=== PATIENT | male | born 1970 | race Two or more races ===

== ENCOUNTER 2025-10-28 23:04 | Emergency (ER) | payer OTHER, SELFPAY ==
[2025-10-28] VITALS (8 sets, daily range): BP systolic 135–165; BP diastolic 92–105; PULSE 88–106; RESP 15–93; TEMP 36.5–36.6; O2SAT 94–97; BMI 30.9
--- NOTE | 2025-10-28 23:06 | PC.NURSE ---
DR. KATE FROM [facility] CALLED FOR CONSULT FOR POSSIBLE STROKE.
--- NOTE | 2025-10-28 23:06 | PD.EDNEURO ---
Neuro Symptoms Deficit-RME/HPI General Chief Complaint: General Adult/Misc Complain Stated Complaint: POSSIBLE STROKE Time Seen by Provider: 10/28/25 23:48 Arrival date/time: 10/28/25 23:04 Limitations: no limitations RME / HPI RME / HPI Narrative: Dr. Andujar's Main ED Evaluation: 55yo male with no significant past medical history [place]JINDER from home presents to the ED due to having neurological symptoms. Stroke alert was initiated ACID PAINTER. Patient was seen by me immediately upon arrival at 2302. Per EMS, patient was watching TV with his when he started having numbness to his right hand, difficulty speaking, and was becoming altered. LKWT 2230. Blood sugar with EMS was 118. Vitals with EMS were: >BP: 196/110 >99% on 6L/[facility] EMS denies tobacco or illicit drug use. Blood sugar here is 121. Full ROS is unobtainable due to the patient having difficulty speaking. Related Data Allergies Allergy/AdvReac Type Severity Reaction Status Date / Time No Known Allergies Allergy Verified 10/28/25 23:25 Review of Systems Review of Systems ROS Unobtainable: unobtainable due to medical condition ED Exam Narrative Physical exam: 1A: Level of Consciousness - Alert; keenly responsive?+ 0 1B: Ask Month and Age - Aphasic?+ 2 1C: Blink Eyes & Squeeze Hands - Performs Both Tasks?+ 0 2: Test Horizontal Extraocular Movements - Normal?+ 0 3: Test Visual Dan - No Visual Loss?+ 0 4: Test Facial Palsy (Use Grimace if Obtunded) - Minor paralysis (flat nasolabial fold, smile asymmetry)?+ 1 5A: Test Left Arm Motor Drift - No Drift for 10 Seconds?+ 0 5B: Test Right Arm Motor Drift - No Drift for 10 Seconds?+ 0 6A: Test Left Leg Motor Drift - No Drift for 5 Seconds?+ 0 6B: Test Right Leg Motor Drift - No Drift for 5 Seconds?+ 0 7: Test Limb Ataxia (FNF/Heel-Sun) - No Ataxia?+ 0 8: Test Sensation - Normal; No sensory loss?+ 0 9: Test Language/Aphasia - Mute/Global Aphasia: No Usable Speech/Auditory Comprehension?+ 3 10: Test Dysarthria - Mute/Anarthric?+ 2 11: Test Extinction/Inattention - No abnormality?+ 0 NIHSS Score:?8 General Limitations: Present no limitations General appearance: Present alert and in no apparent distress Head Head exam: Present atraumatic Eye Eye exam: Present normal appearance, PERRL and EOMI ENT ENT exam: Present normal exam, normal oropharynx and mucous membranes moist Neck Neck exam: Present normal inspection, full ROM and trachea midline Chest Chest inspection: Present normal inspection and symmetric chest wall rise Respiratory Respiratory exam: Absent accessory muscle use Cardiovascular Cardiovascular exam: Present regular rate, normal rhythm and normal heart sounds Abdominal Exam Abdominal exam: Present soft and other (large) Extremities Exam Extremities exam: Present full ROM; Absent pedal edema Neurological Exam Neurological exam: Present alert and other (+ dysarthria, repetitively states I can't ; no gaze to the left or right) Skin Skin exam: Present warm, dry, intact and normal color; Absent diaphoresis Course Course Course Narrative: Stroke alert was initiated ACID PAINTER. 2302: Patient was seen by me immediately upon arrival. Teleneurology is at bedside. 2306: Patient sent to CT. Teleneurology recommends TNKase. 2328: TNKase given. 2348: CT head and CTA head/neck vessels are still pending to be read by the radiologist. 0005: CTA head/neck vessels shows occlusion M1 segment left middle cerebral artery with very poor filling of left middle cerebral artery trifurcation vessels. Patient will require higher [id number]. Charge nurse notified. Quality Measures Suspected type of Stroke: Acute Ischemic Tenecteplase given: within 60 min of arrival stroke Orders Category Date Time Status Bedside Blood Glucose NOW Care 10/28/25 23:07 Completed Component Overhaul Operator NOW Care 10/28/25 23:07 Completed Continuous Pulse Oximetry NOW Care 10/28/25 23:07 Completed EKG (ED ONLY) *Do not use* NOW Care 10/28/25 23:07 Completed In and Out Catheter NEEDED Care 10/28/25 23:07 Completed Insert IV NOW Care 10/28/25 23:07 Completed NIH Stroke Scale Q4HX8,QSHIFT Care 10/28/25 23:46 Completed NIH Stroke Scale now Care 10/28/25 23:07 Completed NPO NOW Care 10/28/25 23:07 Completed Neuro Check Q15M Care 10/28/25 23:46 Completed Nurse Swallow Screen x1 Care 10/28/25 23:07 Completed Vital Signs Q15MIN Care 10/28/25 23:36 Completed Consult to Neurology / Tele-Neurology Routine Cons 10/28/25 23:[address] angio stroke protocol Stat Exams 10/28/25 23:[address] stroke protocol Stat Exams 10/28/25 23:07 Completed EKG (ED Only) Stat Exams 10/28/25 23:07 Draft XR chest 1V portable Stat Exams 10/28/25 23:07 Completed CBC Stat Lab 10/28/25 23:07 Completed Comprehensive Metabolic Panel Stat Lab 10/28/25 23:07 Completed Drug Screen,Urine Stat Lab 10/29/25 01:35 Completed HCG Titer if Positive Stat Lab 10/28/25 23:07 Completed Magnesium Stat Lab 10/28/25 23:07 Completed Partial Thromboplastin Time Stat Lab 10/28/25 23:07 Completed Prothrombin Time with INR Stat Lab 10/28/25 23:07 Completed Troponin I Stat Lab 10/28/25 23:07 Completed Urinalysis, C/S if Indicated Stat Lab 10/29/25 01:35 Completed Labetalol* IV [Trandate* IV] Med 10/28/25 23:31 Discontinued 10 mg IVP PRNMRX1 PRN Labetalol* IV [Trandate* IV] Med 10/28/25 23:31 Discontinued 10 mg IVP PRNMRX1 PRN Labetalol* IV [Trandate* IV] Med 10/28/25 23:06 Discontinued 10 mg IVP Q15M PRN Nicardipine/Ns 20Mg Ivpb [Cardene Ivpb] Med 10/28/25 23:31 Discontinued 20 mg in 200 ml IV 5 mg/hr Ondansetron Inj [Zofran Inj] Med 10/28/25 23:06 Discontinued 4 mg IVP Q4HR PRN Tenecteplase Inj [TNKase Inj] Med 10/28/25 23:31 Discontinued 23 mg IV X1 ONE Tenecteplase Inj [TNKase Inj] Med 10/28/25 23:24 Discontinued 50 mg .ROUTE .STK-MED ONE Oxygen Delivery NOW RT 10/28/25 23:07 Completed Vital Signs Vital signs: Vital Signs Temperature 97.9 F 10/28/25 23:10 Pulse Rate 98 10/28/25 23:10 Respiratory Rate 18 10/28/25 23:10 Blood Pressure 135/92 H 10/28/25 23:10 Pulse Oximetry (%) 94 L 10/28/25 23:10 Oxygen Delivery Method Room Air 10/28/25 23:10 Neuro Symptoms / Deficit MDM Narrative MDM Narrative:: Scribe Attestation: 10/28/25 - Keysha Khalil am scribing for and in the presence of Dr. Andujar. 55-year-old male presented to the emergency department by EMS after witnessed aphasia and possibly right arm weakness that happened exactly at 10:30 PM. Fingerstick is normal here in the emergency department. Blood pressure prior to arrival per EMS was 196/110. NIH score 8. Repeat blood pressure no contraindications to tPA. Blood pressure in the emergency department 135/92 and on repeat 146/97. Patient unable to state his birthdate, is aphasic, with visual field deficits. Seen by teleneurology on arrival patient immediately to CAT scan which shows no bleed. tPA was given. 11:[address] Nieto the teleneurologist with possible and M1 abnormality on CT scan. 11:[address] with contrast still not read by the radiologist. CT angio still pending. 0005: CTA head/neck vessels shows occlusion M1 segment left middle cerebral artery with very poor filling of left middle cerebral artery trifurcation vessels. Patient will require higher [id number]. Charge nurse notified. Status post tPA patient awake alert not complaining of headache. Vital signs are stable at this time. is at the bedside. Patient son is at the bedside. They have been updated and agree to the transfer. 0031: Discussed case with Dr. Kim, neuro from [facility]. Discussed patients ED course, exam findings, labs, and radiology results. Agrees to consult. 0111: Discussed case with Dr. Estevez from [facility]. Discussed patients ED course, exam findings, labs, and radiology results. Patient data External records reviewed:: [facility] previous records (Per chart review, patient has no previous ED visits or admissions to this facility.) and EMS form Clinical information provided by:: EMS Social determinants that could affect healthcare access:: none Patient has the following chronic illnesses:: none How is presenting disease/condition affected by chronic disease/condition?: no chronic disease Evaluation data The following diagnostics were reviewed and interpreted by me:: lab results, radiology exam(s) and EKG tracing(s) Lab and/or radiology exams considered but not ordered:: none Interpretation Summary: WBC normal, PT/INR/PTT normal, CMP normal. EKG done at 2324, sinus tachycardia, rate of 105, 1st degree AV block, TX interval: 205, QTc: 373, according to my interpretation. [facility] Report Signed Patient: MELA ROBERT T1 Visions. Record#: [id number] Birthdate: 08/23/1976 Age/Sex: 49 / M Location: [facility] Attending Dr: Ordering Physician: Luisa Young MD Date of Service: 10/28/25 Procedure(s): CT stroke protocol Accession Number(s): [id number] cc: Alfredito Lomeli MD; Luisa Yuong MD~ Examination: CT brain head without contrast. 2-D sagittal coronal reconstructions Date and time of exam: October 28, 2025, 11:25 p.m. INDICATIONS: Onset right-sided body weakness difficulty speaking today CTDI: vol (mGy): 53.4 DLP: (mGycm): 1094 Technique: Multiple CT axial sections of the brain have been obtained, 5 mm slice thickness. Contrast has not been administered. 2-D sagittal, coronal reconstructions have been obtained Low dose protocols were performed. One or more of the following dose reduction techniques were used; automated exposure control, adjustment of the mA and/or KV according to patient size, use of iterative reconstruction technique. Findings: No significant ventricular enlargement. Intra-axial or extra-axial hemorrhage density is not seen. No mass effect or midline shift Basal cisterns are not remarkable. Fourth ventricle is midline. Cranial vault intact. Impression: Negative for acute hemorrhage, mass effect or midline shift Dictated By: Alfredito Lomeli MD Signed By: <Electronically signed by Alfredito Lomeli MD in OV> 10/28/25 2350 [facility] Report Signed Patient: MELA ROBERT T1 Visions. Record#: [id number] Birthdate: 08/23/1976 Age/Sex: 49 / M Location: [facility] Attending Dr: Ordering Physician: Luisa Young MD Date of Service: 10/28/25 Procedure(s): CT angio stroke protocol Accession Number(s): [id number] cc: Alfredito Lomeli MD; Luisa Young MD~ Examination: CTA carotids with intravenous contrast CTA brain, head with intravenous contrast. 2-D sagittal, coronal reconstructions. 3-D reconstructions. Exam date and time: October 28, 2025, 1115 hours INDICATIONS: Right-sided body weakness difficulty speaking today CTDI: vol (mGy) 11.4 DLP: (mGycm) 474 Technique: Multiple CTA axial brain, head carotid images post intravenous contrast injection 75 cc, [id number]. 2-D sagittal, coronal reconstructions. 3-D reconstructions, 3-D post processing including vascular maximum intensity projection images. Low dose protocols were performed. One or more of the following dose reduction techniques were used; automated exposure control, adjustment of the mA and/or KV according to patient size, use of iterative reconstruction technique. Findings: No significant common carotid carotid bifurcation or internal carotid artery stenoses Dominant right vertebral artery in the neck no critical stenoses Intracranial vertebral arteries basilar artery posterior cerebral branches do fill Juxtasellar and supraclinoid portions internal carotid arteries do fill Occlusion M1 segment left middle cerebral artery with poor filling of left middle cerebral artery trifurcation vessels Anterior cerebral arteries do fill IMPRESSION: No significant neck arterial stenoses Occlusion M1 segment left middle cerebral artery with very poor filling of left middle cerebral artery trifurcation vessels Dictated By: Alfredito Lomeli MD Signed By: <Electronically signed by Alfredito Lomeli MD in OV> 10/28/25 6775 Medications / Prescriptions Medications or Prescriptions considered but not ordered:: none Medication administrations:: Medication Administration History Discontinued Medications Nicardipine/Sodium Chloride (Cardene Ivpb) 20 mg in 200 mls @ 50 mls/hr IV .Q4H PRN; Protocol PRN Reason: Per Nicardipine Stroke Protocol Stop: 11/27/25 23:30 Labetalol HCl (Labetalol Inj 5 Mg/Ml Vial 4 Ml) 10 mg IVP Q15M PRN PRN Reason: hypertension Labetalol HCl (Labetalol Inj 5 Mg/Ml Vial 4 Ml) 10 mg IVP PRNMRX1 PRN PRN Reason: SBP > 185 mmHg and/or DBP > 110 Labetalol HCl (Labetalol Inj 5 Mg/Ml Vial 4 Ml) 10 mg IVP PRNMRX1 PRN PRN Reason: SBP > 180 mmHg or DBP > 105 Ondansetron HCl (Ondansetron Inj 2 Mg/Ml Inj 2 Ml) 4 mg IVP Q4HR PRN PRN Reason: NAUSEA OR VOMITING Stop: 11/27/25 23:05 Tenecteplase (Tenecteplase Inj 50 Mg Vial) Confirm Administered Dose 50 mg .ROUTE .STK-MED ONE Stop: 10/28/25 23:25 Last Admin: 10/28/25 23:36 Dose: Not Given Documented By: KYLER Non-Admin Reason: Override Medication Tenecteplase (Tenecteplase Inj 50 Mg Vial) 23 mg 0.25 mg/kg (23 mg) IV X1 ONE Stop: 10/28/25 23:32 Last Admin: 10/28/25 23:28 Dose: 23 mg Documented By: KYLER Co-signed By: OLGA see above Consultations Consultation(s) initiated? (list below): Yes Consultation #1 (Physician, Specialty, Details): Discussed case with Dr. Nieto from teleneurology regarding consultation. Discussed patients ED course, exam findings, labs, and radiology results. Recommends TNKase. Time: 23:21 Diagnosis Neuro Differential Diagnosis: subarachnoid hemorrhage, cerebrovascular accident, transient cerebral ischemia and other (LVO) Most likely diagnosis given after review of the tests above:: see clinical impression below Admission Indicated Admission indicated?: not indicated Explain why admission is indicated or not indicated:: Patient requires services that we do not have at our facility. Admission Request Was there a request for admission?: No Disposition Plan Disposition Plan: Admit Critical Care Time Critical Care Time Critical Care Time: Yes Total Critical Care Time (min.): 80 Attestation: The high probability of sudden, clinically significant deterioration in the patient?s condition required the highest level of my preparedness to intervene urgently. The services I provided to this patient were to treat and/or prevent clinically significant deterioration. Services included the following: chart data review, reviewing nursing notes and/or old charts, documentation time, performance test consultant collaboration regarding findings and treatment options, medication orders and management, direct patient care, vital sign assessments and ordering, interpreting and reviewing diagnostic studies and lab tests. Aggregate critical care time includes only time during which I was engaged in work directly related to the patient?s care, as described above, whether at bedside or elsewhere in the Emergency Department. It did not include time spent performing other reported procedures or the services of residents, students, nurses or physician assistants. Discharge Plan Plan Patient Disposition: [facility] Pt Being Transferred to: [facility] Service Needed for Transfer: Interventional Radiology Patient condition on transfer: Stable Problem List Clinical Impression: Stroke, Occlusion of left middle cerebral artery Patient/Caregiver Discharge Instructions Print Language: Greek Stand Alone Forms: [facility] Award Info., Patient Portal Info Letter
--- NOTE | 2025-10-28 23:07 | EKG_ITS ---
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
--- NOTE | 2025-10-28 23:07 | XR_ITS ---
EXAMINATION: AP chest single view TECHNIQUE: AP portable upright chest single view Date and time: October 28, 2025, 1131 hours INDICATIONS: Stroke alert today FINDINGS: Normal heart size No aspiration pneumonia Osseous structures intact with old right-sided rib fractures IMPRESSION: No aspiration pneumonia
[2025-10-28 23:25] LABS: Basophils # (Auto) 0.1 Thou/mm3 (0.0-0.2); Basophils % (Auto) 1 % (0-2.5); Eosinophils # (Auto) 0.3 Thou/mm3 (0.0-0.5); Eosinophils % (Auto) 3 % (0-10); Hematocrit 46.1 % (41.0-53.0); Hemoglobin 16.5 g/dL (13.5-16.0); Immature Granulocytes Auto 0.02 Thou/mm3 (0.00-0.00); Lymphocytes # (Auto) 4.1 Thou/mm3 (1.0-4.8); Lymphocytes % (Auto) 41 % (10-50); Mean Corpuscular HGB Conc 35.8 g/dl (31.0-37.0); Mean Corpuscular Hemoglobin 32.0 pg (25.0-35.0); Mean Corpuscular Volume 90 fL (80-100); Monocytes # (Auto) 1.0 Thou/mm3 (0.0-0.8); Monocytes % (Auto) 10 % (0-12); Neutrophils # (Auto) 4.6 Thou/mm3 (1.8-7.7); Neutrophils % (Auto) 46 % (37-80); Nucleated Red Blood Cell # 0.00 Thou/mm3 (0.00-0.00); Nucleated Red Blood Cell % 0 /100 WBC (0); Platelet Count 221 Thou/mm3 (140-440); RDW Standard Deviation 43.2 fL (35.1-43.9); Red Blood Count 5.15 Miln/mm3 (4.50-5.90); White Blood Count 10.0 Thou/mm3 (3.8-10.6)
[2025-10-28] MEDS: TENECTEPLASE INJ 50 MG VIAL 23 MG IV (23:28)
[2025-10-28 23:41] LABS: INR 1.0 (0.9-1.3); Partial Thromboplastin Time 23.5 Seconds (22.0-36.0); Prothrombin Time 10.4 Seconds (9.0-12.2)
[2025-10-28 23:46] LABS: Alanine Aminotransferase 66 U/L (10-49); Albumin, Serum 4.7 gm/dL (3.5-5.0); Albumin/Globulin Ratio 1.4 (1.2-2.2); Alkaline Phosphatase 65 U/L (46-116); Anion Gap 13 (7-16); Aspartate Amino Transferase 55 U/L (0-34); BUN/Creatinine Ratio 11 Ratio (12-20); Bilirubin,Total 0.6 mg/dL (0.3-1.2); Blood Urea Nitrogen 12 mg/dL (9-23); Calcium 9.3 mg/dL (8.3-10.6); Calcium (Corrected) 9.3 mg/dL (8.5-10.1); Carbon Dioxide 25.0 mMol/L (20.0-31.0); Chloride 104 mMol/L (98-107); Creatinine (Component) 1.1 mg/dL (0.6-1.3); Estimated Creatinine Clearance 89.5 mL/min (>60); Globulin 3.3 gm/dL (2.3-3.5); Glucose 115 mg/dL (74-106); Magnesium 1.8 mg/dL (1.6-2.6); Osmolality,Calculated 283 (275-295); Potassium 3.5 mMol/L (3.4-5.1); Sodium 142 mMol/L (136-145); Total Protein 8.0 gm/dL (5.7-8.2); Troponin I < 0.020 ng/mL (0.0-0.045); eGFR > 60 See Note
--- NOTE | 2025-10-28 23:51 | ESCONSULT_ITS ---
Tele Neuro Consultation Consultation Date 10/28/25 Most Recent Vital Signs Last Vital Signs Temp 97.7 F 10/28/25 23:30 Pulse 94 10/28/25 23:45 Resp 25 H 10/28/25 23:45 BP 159/103 H 10/28/25 23:45 Pulse Ox 95 10/28/25 23:45 O2 Del Method Nasal Cannula 10/28/25 23:45 O2 Flow Rate 2 10/28/25 23:45 Laboratory-Coagulation Panel PT 10.4 Seconds (9.0-12.2) 10/28/25 23:07 INR 1.0 (0.9-1.3) 10/28/25 23:07 APTT 23.5 Seconds (22.0-36.0) 10/28/25 23:07 Consultation Narrative [facility] Tele[facility]urology Consult [facility] Patient Name:???lori mccullough Date of :???08/23/1976 Identification Number:??? Date of Service:???10/28/2025 22:58:46 Diagnosis:?I63.89 - Cerebrovascular accident (CVA) due to other mechanism ([facility]) Impression: ?The patient presents with aphasia, dizziness, and R sided weakness. On exam currently no weakness, possible slight R facial droop but he is globally aphasic and unable to follow commands. CTH shows no acute findings. Acute ischemic stroke is suspected. Alternatively, atypical seizure also on differential. Given the patient's current disabling deficits, we recommended the use of IV thrombolytic and had detailed discussion with the patient regarding risks including bleeding, allergic reaction,risk of needing surgery, blood transfusions, or loss of limb function, and other unforeseen adverse effects. Contraindications were reviewed in detail and patient met criteria for thrombolytic. We reviewed that the risk of bleeding is estimated at 3-6% and serious bleeding risk of 1-2% could rarely even be fatal. The patient was unable to speak but the family expressed understanding and was in agreement with receiving the medication. A timeout was performed and the patient received the TNK injection without complication. Stat CTA is ordered to rule out LVO to assess for eligibility for thrombectomy. Otherwise, will admit for post TNK stroke care and further workup. Our recommendations are outlined below. Recommendations: IV Tenecteplase recommended. I confirmed the following. (Patient name, , MRN, Blood Pressure, dose of Thrombolytic and waste, weight completed by stretcher/scale not stated weight, have ED staff inform ED MD of thrombolytic decision) Thrombolytic bolus given Without Complication. IV Tenecteplase Total Dose ? 23.0 mg (Dose Rounding Per Facility Protocol) Routine post Thrombolytic monitoring including neuro checks and blood pressure control during/after treatment Monitor blood pressure Check blood pressure and neuro assessment every 15 min for 2 h, then every 30 min for 6 h, and finally every hour for 16 h. Manage Blood Pressure per post Thrombolytic protocol. ? Follow designated hospital protocol for admission and post thrombolytic care ? CT brain 24 hours post Thrombolytic ? NPO until swallowing screen performed and passed ? No antiplatelet agents or anticoagulants (including heparin for DVT prophylaxis) in first 24 hours ? No Betancourt catheter, nasogastric tube, arterial catheter or central venous catheter for 24 hr, unless absolutely necessary ? Telemetry ? Bedside swallow evaluation ? HOB less than 30 degrees ? Euglycemia ? Avoid hyperthermia, PRN acetaminophen ? DVT prophylaxis ? Inpatient Neurology Consultation ? Stroke evaluation as per inpatient neurology recommendations Discussed with ED physician Advanced Imaging: Advanced imaging has been ordered. Results pending. Metrics: Last Known Well: 10/28/2025 22:30:00 Arrival Time: 10/28/2025 23:04:00 Activation Time: 10/28/2025 22:58:46 Initial Response Time: 10/28/2025 23:01:45 ETA Time reported by hospital: 3 Minutes.Symptoms: trouble speaking. Initial patient interaction: 10/28/2025 23:06:32 NIHSS Assessment Completed: 10/28/2025 23:08:44Patient is a candidate for Thrombolytic. Thrombolytic Medical Decision: 10/28/2025 23:24:49 Needle Time: 10/28/2025 23:28:46Weight Noted by Staff: 92.[address] Head: I personally reviewed all the CT images that were available to me and it showed: No Acute Hemorrhage or Acute Core Infarct Primary Provider Notified of Diagnostic Impression and Management Plan on: 10/28/2025 23:34:05 Extended thrombolytic management related to: ?? Awaiting on history by family on potential contraindications Thrombolytic Contraindications: Last Known Well > 4.5 hours:?No CT Head showing hemorrhage:?No Ischemic stroke within 3 months:?No Severe head trauma within 3 months:?No Intracranial/intraspinal surgery within 3 months:?No History of intracranial hemorrhage:?No Symptoms and signs consistent with an SAH:?No GI malignancy or GI bleed within 21 days:?No Coagulopathy: Platelets <100 000 /mm3, INR >1.7, aPTT>40 s, or PT >15 s:?No Treatment dose of LMWH within the previous 24 hrs:?No Use of NOACs in past 48 hours:?No Glycoprotein IIb/IIIa receptor inhibitors use:?No Symptoms consistent with infective endocarditis:?No Suspected aortic arch dissection:?No Intra-axial intracranial neoplasm:?No Thrombolytic Decision and Management Plan: Management with thrombolytic treatment was explained to the Family as was risks and benefits and alternatives to the treatment. Patient agrees with the decision to proceed with thrombolytic treatment. . All questions were answered and the Family expressed understanding of the treatment plan. History of Present Illness:Patient is a 49 year old Male. Patient was brought by EMS for symptoms of trouble speaking. Patient LKWT was at 10:30pm, was watching TV with his when it started. he started having R hand weakness and difficulty speaking, confusion. He also complained of being dizzy for EMS. He is unable to follow commands. Currently is awake and alert but unable to speak any words. He appears to want to communicate with hand gestures but is unable to say anything. Past Medical History: ?There is no history of Stroke ?There is no history of Seizures Other PMH:? prediabetes unable to obtain due to:?? Patient Cannot Speak Medications: No Anticoagulant use? No Antiplatelet use Reviewed EMR for current medications Allergies:? Reviewed Allergies Unable To Obtain Due To:?Patient Cannot Speak Social History: Unable To Obtain Due To Patient Status :?Patient Cannot Speak Family History: Family History Cannot Be Obtained Because:Patient Cannot Speak ROS :?ROS Cannot Be Obtained Because:? Patient Cannot Speak Past Surgical History: Past Surgical History Cannot Be Obtained Because: Patient Cannot Speak There Is No Surgical History Contributory To Today?s Visit Examination: BP(135/92),?Pulse(100),?Blood Glucose(118) 1A: Level of Consciousness - Alert; keenly responsive?+ 0 1B: Ask Month and Age - Aphasic?+ 2 1C: Blink Eyes & Squeeze Hands - Performs Both Tasks?+ 0 2: Test Horizontal Extraocular Movements - Normal?+ 0 3: Test Visual Dan - No Visual Loss?+ 0 4: Test Facial Palsy (Use Grimace if Obtunded) - Minor paralysis (flat nasolabial fold, smile asymmetry)?+ 1 5A: Test Left Arm Motor Drift - No Drift for 10 Seconds?+ 0 5B: Test Right Arm Motor Drift - No Drift for 10 Seconds?+ 0 6A: Test Left Leg Motor Drift - No Drift for 5 Seconds?+ 0 6B: Test Right Leg Motor Drift - No Drift for 5 Seconds?+ 0 7: Test Limb Ataxia (FNF/Heel-Sun) - No Ataxia?+ 0 8: Test Sensation - Normal; No sensory loss?+ 0 9: Test Language/Aphasia - Mute/Global Aphasia: No Usable Speech/Auditory Comprehension?+ 3 10: Test Dysarthria - Mute/Anarthric?+ 2 11: Test Extinction/Inattention - No abnormality?+ 0 NIHSS Score:?8 Pre-Morbid Modified Mitchell Scale: 0 Points = No symptoms at all Spoke with :?Dr Young This consult was conducted in real time using interactive audio and video technology. Patient was informed of the technology being used for this visit and agreed to proceed. Patient located in hospital and provider located at home/office setting. Patient is being evaluated for possible acute neurologic impairment and high probability of imminent or life-threatening deterioration. I spent total of 45 minutes providing care to this patient, including time for face to face visit via telemedicine, review of medical records, imaging studies and discussion of findings with providers, the patient and/or family. Dr Clay Nieto [facility] For Inpatient follow-up with [facility] physician please call [facility] at . As we are not an outpatient service [facility] please contact the hospital for assistance. If you have any questions for the [facility] physicians or need to reconsult for clinical or diagnostic changes please contact us via [facility] at . Non-radiologist review of imaging performed to assist with emergent clinical decision-making. Remote physician workstations do not possess the same resolution, calibration, or diagnostic capabilities as hospital-based radiology reading stations, and formal radiologist read is necessary. Signature :Moreno Nieto
[2025-10-29] VITALS (13 sets, daily range): BP systolic 139–164; BP diastolic 90–103; PULSE 86–118; RESP 12–20; O2SAT 95–99
--- NOTE | 2025-10-29 00:30 | PC.NURSE ---
[facility] contacted for STAT transfer for LVO M1 segment left middle cerebral artery. Hector in the phone now [facility] Neuro surgeon for peer to peer.
--- NOTE | 2025-10-29 00:36 | PC.NURSE ---
Initiated [facility] for possible AIR transfer will check for weather and notify us if accepted.
--- NOTE | 2025-10-29 00:57 | PC.NURSE ---
[facility] declining due to weather-stated they are declining until 0900 and if unable to find transport notify 'them' and see what they can do
--- NOTE | 2025-10-29 01:22 | PC.NURSE ---
SPOKE WITH JASMIN DELEON ACCEPTED TO [facility] BY DR. ROBERTS TO ICU RM 377 BED 1. REPORT TO [phone] EX. [phone]. CALL BACK WITH ETA AT [phone]
--- NOTE | 2025-10-29 01:32 | PC.NURSE ---
PATIENT IS BEING TRANSPORTED TO [facility] BY [facility]. REPORT WAS GIVEN TO GIOVANY SÁNCHEZ.
--- NOTE | 2025-10-29 01:47 | PC.NURSE ---
[facility] GAVE REPORT TO SUSANNA SÁNCHEZ.
[2025-10-29 01:50] LABS: Collection Type, Urine Clean Catch; Squamous Epithelial Cell,Urine 0 /hpf (0-5)
[2025-10-29 01:56] LABS: Bilirubin,Urine Negative (Negative); Blood,Urine Negative (Negative); Clarity,Urine Clear (Clear/Hazy); Color,Urine Colorless (Lt Yel-Yel); Culture Indicated,Urine Not Indicated; Glucose, Urine Negative (Negative); Ketones,Urine Negative (Negative); Leukocyte Esterase,Urine Negative (Negative); Nitrite,Urine Negative (Negative); PH,Urine 7.0 (5.0-7.0); Protein,Urine Negative (Neg - Trace); RBC,Urine 2 /hpf (0-3); Urobilinogen,Urine Negative mg/dL (0.0-1.0); WBC,Urine 1 /hpf (0-5)
[2025-10-29 01:57] LABS: Specific Gravity,Urine 1.025 (1.001-1.035)
[2025-10-29 01:59] LABS: Amphetamine/Methamp Scrn,U Negative (Negative); Barbiturate Screen,Urine Negative (Negative); Benzodiazepines Screen,Urine Negative (Negative); Benzoylecgonine Screen, Ur Negative (Negative); Fentanyl Screen,Urine Negative (Negative); Opiate Screen,Urine Negative (Negative); THC Screen,Urine Negative (Negative)
== END 2025-10-29 01:49 | disposition short-term general hospital (02) ==
LOC: SERX 10-29 01:03
PROVIDERS: Emergency Provider Emergency Medicine
DX: I63.512 Cerebral infarction due to unspecified occlusion or stenosis of left middle cerebral artery (principal); G81.91 Hemiplegia, unspecified affecting right dominant side; R47.01 Aphasia; R29.708 NIHSS score 8; Z75.1 Person awaiting admission to adequate facility elsewhere
CPT/HCPCS: 36415; 70450; 70496; 70498; 71045; 80053; 80307; 81001; 83735; 84484; 84703; 85025; 85610; 85730; 93005; 99285; A4649; J3101; Q9967